=== PATIENT | female | born 1940 | race Caucasian/White ===

== ENCOUNTER → 2019-03-16 12:23 | Outpatient (CLI) | payer MEDICARE, SELFPAY ==
--- NOTE | ~2019-03-16 | XR_ITS ---
EXAMINATION: XR chest 2V DATE: 03/16/2019 12:37 INDICATION: Shortness of breath. TECHNIQUE: Frontal and lateral views of the chest were obtained on 3 radiographs. COMPARISON: None. FINDINGS: The chest demonstrates clear lungs without pneumonia, pleural effusion, or pneumothorax. Th e heart size is normal. IMPRESSION: 1. No acute cardiopulmonary disease. Reviewed, dictated and finalized at location A. NDER LOADER
== END ==
PROVIDERS: PCP Family Medicine; Visit Provider Family Medicine
DX: R06.02 Shortness of breath (principal)
CPT/HCPCS: 71046

== ENCOUNTER → 2019-03-28 12:58 | Outpatient (CLI) | payer MEDICARE, SELFPAY ==
--- NOTE | ~2019-03-28 | MM_ITS ---
EXAMINATION: MM screening [facility] BI w [place] HISTORY: Screening mammogram TECHNIQUE: Craniocaudal and mediolateral oblique 3-D tomosynthesis images were obtained and synthetic 2-D images were generated. CAD analysis was submitted and interpreted. COMPARISON: 11/16/2017, 10/25/2016, 11/13/2014 BREAST PARENCHYMAL COMPOSITION: There are scattered areas of fibroglandular density. FINDINGS: There is no evidence of suspicious mass, calcification, or architectural distortion to sugg est malignancy in either breast. There has been no suspicious interval change. IMPRESSION: 1. No mammographic evidence of malignancy. 2. Recommend routine screening mammography in one year. BI-RADS Category 1: Negative Reviewed, dictated and finalized at location A. RA ENGINEER
== END ==
PROVIDERS: PCP Family Medicine; Visit Provider Family Medicine
DX: Z12.31 Encounter for screening mammogram for malignant neoplasm of breast (principal)
CPT/HCPCS: 77063; 77067

== ENCOUNTER → 2019-09-20 09:50 | Outpatient (CLI) | payer MEDICARE, SELFPAY ==
--- NOTE | ~2019-09-20 | DEXA_ITS ---
Bone Density Report Name: Ana Kelly Age: 79 Sex: Female Ethnicity: White Date of : 1940 Indication: postmenopausal osteoporosis; monitoring treatment; height loss; Referring Provider: JULIO RICHARDSON Study: Bone densitometry was performed. Exam Date: September 20, 2019 Accession number: [id number] Bone Density: Region BMD T-score Z-score Classification AP Spine (L1-L4) 0.861 -1.7 1.0 Osteopenia Femoral Neck (Left) 0.469 -3.4 -1.1 Osteoporosis Total Hip (Left) 0.593 -2.9 -0.8 Osteoporosis Femoral Neck (Right) 0.452 -3.6 -1.3 Osteoporosis Total Hip (Right) 0.518 -3.5 -1.4 Osteoporosis Total Hip Mean 0.556 -3.2 -1.1 Osteoporosis World Health Organization criteria for BMD impression classify patients as: Normal (T-score at or above -1.0), Osteopenia (T-score between -1.0 and -2.5), or Osteoporosis (T-score at or below -2.5). 10-year Fracture Risk: FRAX not reported because: Some T-score for Spine Total or Hip Total or Femoral Neck at or below -2.5 Treated for osteoporosis Previous Exams: Region Exam Age BMD T-score BMD Change BMD Change Date g/cm2 vs Baseline vs Previous AP Spine(L1-L4) 09/20/2019 79 0.861 -1.7 0.069* 0.069* 10/18/2016 76 0.792 -2.3 Total Hip(Left) 09/20/2019 79 0.593 -2.9 -0.004 -0.004 10/18/2016 76 0.597 -2.8 Total Hip(Right) 09/20/2019 79 0.518 -3.5 0.038* 0.038* 10/18/2016 76 0.479 -3.8 *Denotes significance at 95% confidence level, LSC for AP Spine = 0.022 g/cm2, LSC for Total Hip = 0.027 g/cm2 Clinical Information Provided by Patient: Is being treated for osteoporosis Has used the following medications: Fosamax (i.e. alendronate), Vitamin D, Calcium Patient maximum height was 63 Menopause Age: 44 No regular weight bearing exercise Does not regularly consume dairy products Drinks caffeinated beverages Onset of menses at age 12 Number of children 2 Impression: The patient has osteoporosis, based on the Right Femoral Neck T-score. No significant bone loss was observed. Discussion: PATIENT UNDER TREATMENT WITH NO SIGNIFICANT BMD LOSS SINCE LAST EXAM. In an untreated patient, BMD typically declines with age. A lack of decline or gain is usually a sign that treatment is efficacious and fracture risk is reduced. It is important to ask patients whether they are taking their medications and to encourage continued and appropriate compliance with the
== END ==
PROVIDERS: PCP Family Medicine; Visit Provider Family Medicine
DX: M81.0 Age-related osteoporosis without current pathological fracture (principal); M85.88 Other specified disorders of bone density and structure, other site
CPT/HCPCS: 77080

== ENCOUNTER 2021-02-10 14:51 | Outpatient (CLI) | payer MEDICARE, SELFPAY ==
--- NOTE | ~2021-02-10 | MM_ITS ---
EXAMINATION: MM screening [facility] BI w [place] HISTORY: Screening mammogram TECHNIQUE: Craniocaudal and mediolateral oblique 3-D tomosynthesis images were obtained and synthetic 2-D images were generated. CAD analysis was submitted and interpreted. COMPARISON: 03/28/2019, 11/16/2017, 10/25/2016 BREAST PARENCHYMAL COMPOSITION: The breasts are almost entirely fatty. FINDINGS: There is no evidence of suspicious mass, calcification, or architectural distortion to sugg est malignancy in either breast. There has been no suspicious interval change. IMPRESSION: 1. No mammographic evidence of malignancy. 2. Recommend routine screening mammography while the patient remains in good health. BI-RADS Category 1: Negative Reviewed, dictated and finalized at location A. NCE INTERN IMPRESSION: 1. No mammographic evidence of malignancy. 2. Recommend routine screening mammography while the patient remains in good he alth. BI-RADS Category 1: Negative
== END 2021-02-10 14:52 | disposition home or self-care (01) ==
LOC: ANHIMG 14:54
PROVIDERS: PCP Family Medicine; Visit Provider Family Medicine
DX: Z12.31 Encounter for screening mammogram for malignant neoplasm of breast (principal)
CPT/HCPCS: 77063; 77067

== ENCOUNTER → 2022-05-03 08:35 | Outpatient (CLI) | payer MEDICARE, SELFPAY ==
--- NOTE | ~2022-05-03 | MM_ITS ---
EXAMINATION: MM screening [facility] BI w [place] HISTORY: Screening TECHNIQUE: Craniocaudal and mediolateral oblique 3-D tomosynthesis images were obtained and synthetic 2-D images were generated. CAD analysis was submitted and interpreted. COMPARISON: Comparison to multiple prior studies sequentially, with oldest reviewed study dated 08/2014. BREAST PARENCHYMAL COMPOSITION: There are scattered areas of fibroglandular density. FINDINGS: There is no evidence of suspicious mass, calcification, or architectural distortion to sugg est malignancy in either breast. There has been no suspicious interval change. IMPRESSION: 1. No mammographic evidence of malignancy. 2. Recommend routine screening mammography in one year. BI-RADS Category 1: Negative Reviewed, dictated and finalized at location A.
--- NOTE | ~2022-05-03 | DEXA_ITS ---
Bone Density Report Name: LORE GOMEZ Age: 82 Sex: Female Ethnicity: White Date of : 1940 Indication: postmenopausal osteoporosis; height loss; Referring Provider: JULIO RICHARDSON Study: Bone densitometry was performed. Exam Date: May 03, 2022 Accession number: [id number] Bone Density: Region BMD T-score Z-score Classification AP Spine (L1-L4) 0.870 -1.6 1.2 Osteopenia Femoral Neck (Left) 0.462 -3.5 -1.1 Osteoporosis Total Hip (Left) 0.596 -2.8 -0.6 Osteoporosis Femoral Neck (Right) 0.431 -3.8 -1.3 Osteoporosis Total Hip (Right) 0.516 -3.5 -1.3 Osteoporosis Total Hip Mean 0.556 -3.2 -1.0 Osteoporosis World Health Organization criteria for BMD impression classify patients as: Normal (T-score at or above -1.0), Osteopenia (T-score between -1.0 and -2.5), or Osteoporosis (T-score at or below -2.5). 10-year Fracture Risk: FRAX not reported because: Some T-score for Spine Total or Hip Total or Femoral Neck at or below -2.5 Previous Exams: Region Exam Age BMD T-score BMD Change BMD Change Date g/cm2 vs Baseline vs Previous AP Spine(L1-L4) 05/03/2022 82 0.870 -1.6 0.078* 0.009 09/20/2019 79 0.861 -1.7 0.069* 0.069* 10/18/2016 76 0.792 -2.3 Total Hip(Left) 05/03/2022 82 0.596 -2.8 -0.001 0.004 09/20/2019 79 0.593 -2.9 -0.004 -0.004 10/18/2016 76 0.597 -2.8 Total Hip(Right) 05/03/2022 82 0.516 -3.5 0.037* -0.001 09/20/2019 79 0.518 -3.5 0.038* 0.038* 10/18/2016 76 0.479 -3.8 *Denotes significance at 95% confidence level, LSC for AP Spine = 0.022 g/cm2, LSC for Total Hip = 0.027 g/cm2 Clinical Information Provided by Patient: Has used the following medications: Vitamin D, MTV Patient maximum height was 63 Menopause Age: 44 No regular weight bearing exercise Onset of menses at age 12 Number of children 2 Impression: The patient has osteoporosis, based on the Right Femoral Neck T-score. No significant bone loss was observed. Discussion: INCREASED RISK OF FRACTURE. BONE DENSITY IS UNDESIRABLY LOW AT ONE OR MORE SKELETAL SITES, CONSISTENT WITH POSTMENOPAUSAL OSTEOPOROSIS. This patient's lowest T-score meets the World Health Organization's (WHO) criteria for osteoporosis at one or more sites (T-score -2.5 or below). In untreated patients, the risk of osteoporotic fracture increases approximately tw
== END ==
PROVIDERS: PCP Family Medicine; Visit Provider Family Medicine
DX: Z12.31 Encounter for screening mammogram for malignant neoplasm of breast (principal); Z78.0 Asymptomatic menopausal state; M85.88 Other specified disorders of bone density and structure, other site; M81.0 Age-related osteoporosis without current pathological fracture
CPT/HCPCS: 77063; 77067; 77080

== ENCOUNTER 2022-07-01 08:34 | Day surgery (SDC) | payer MEDICARE, SELFPAY ==
[2022-06-15 14:13] VITALS: BMI 21.2
--- NOTE | 2022-06-30 15:23 | PM.HPGS ---
History of Present Illness History of Present Illness Consent: Risks, benefits, and alternatives have been discussed and questions answered. Patient agrees to proceed with procedure. Chief complaint: Anemia Narrative: Ana Kelly is a 82 year old female referred for investigation of anemia. Hemoglobin has been running between 10.8 and 11.1 For the past year or 2. A stool Hemoccult last year was negative. She denies using NSAIDs. She does have epigastric pain and usually is aware of it in the morning. Review of Systems Review of Systems: All systems reviewed & are unremarkable except as noted in HPI and below PMFSH Past Medical History Medical History Benign reactive hypertension Blurred vision Cervical spondylosis JEFFY (generalized anxiety disorder) Kyphoscoliosis Mixed hyperlipidemia Osteoporosis Stress at home Surgical History Surgical History H/O cervical spine surgery Hx of cataract surgery Family History Family History Father Family history of malignant neoplasm Other Family history of coronary artery disease Hypertension Social History Social History Social History: Smoking status: Never smoker Tobacco type: cigarettes Second hand tobacco smoke exposure: No Smoking end date: 02/07/89 Alcohol intake: never Substance use: never Substance use type: does not use Lack of Transportation: No Lack of Food: Never True Current Housing: I Have Housing Concerned About Future Housing: No Difficulty Paying Gas/Electric Bills: No Difficulty Paying for Meds: No Currently Unemployed: YES Education: Decline to Answer Difficulty w/ Childcare or Family Care: No Living arrangements: with family Additional living arrangements comments: pt son lives with her Occupation/Education: retired Gender identity (if verbalized by the patient): Female Sexual Orientation (if Verbalized by the Patient): Straight or Heterosexual Spiritual care concerns: No Meds Home Medications and Allergies Home Medications Medication Instructions Recorded Confirmed Type losartan 25 mg tablet 25 mg PO BID #180 tabs 10/29/21 07/01/22 Rx alendronate 70 mg tablet 70 mg PO WEEKLY #13 tabs 02/02/22 07/01/22 Rx cholecalciferol (vitamin D3) 1,250 1,250 mcg PO WEEKLY #14 caps 02/18/22 07/01/22 Rx mcg (50,000 unit) capsule rosuvastatin 5 mg tablet See Rx Instructions .Route 04/30/22 07/01/22 Rx .COMPLEX #90 tabs omeprazole 40 mg capsule,delayed 40 mg PO DAILY #30 caps 05/11/22 07/01/22 Rx release clorazepate dipotassium 7.5 mg 7.5 mg PO PRN PRN anxiety 06/15/22 06/15/22 History tablet Allergies Allergy/AdvReac Type Severity Reaction Status Date / Time escitalopram [From Lexapro] AdvReac Unknown nausea Verified 07/01/22 09:21 sertraline AdvReac Unknown nausea, Verified 07/01/22 09:21 vomiting Exam Const: General: alert Orientation/consciousness: patient oriented x3 Resp: Auscultation: clear to auscultation bilaterally Cardio: Rhythm: regular rhythm GI: GI Palp: Yes Soft to palpation and No Tenderness to palpation present (GI) Neuro: General: patient oriented x3 Assessment and Plan Assessment and plan (1) Anemia: Code(s): D64.9 - Anemia, unspecified Status: Acute Assessment and Plan: EGD with possible biopsy or dilatation or cautery.
[2022-07-01 09:26] VITALS: BP 146/83; PULSE 68; RESP 18; TEMP 36.6; O2SAT 100
[2022-07-01 09:31] VITALS: BMI 20.7
[2022-07-01] MEDS: LACTATED RINGERS 1,000 ML 150 ML IV CONT (09:59)
[2022-07-01 10:52] VITALS: BP 91/61; PULSE 68; RESP 14; O2SAT 98
[2022-07-01 11:03] VITALS: BP 101/55; PULSE 69; RESP 16; O2SAT 100
--- NOTE | 2022-07-01 11:08 | WPDANESPN ---
Anes - Prog Note Post-Op Date/Time: 07/01/22 11:08 Cardiovascular status: normal Respiratory status: normal Airway patency: baseline Mental status: baseline Post-Op hydration status: normal Vital Signs: Last Vital Signs Temp 36.6 C 07/01/22 09:26 Pulse 68 07/01/22 10:52 Resp 14 07/01/22 10:52 BP 91/61 L 07/01/22 10:52 Pulse Ox 98 07/01/22 10:52 O2 Del Method Room Air 07/01/22 10:52 Pain Score (VAS): 0/10 Patient Feedback: Patient satisfied with anesthetic care.
[2022-07-01 11:13] VITALS: BP 102/79; PULSE 71; RESP 18; O2SAT 99
== END 2022-07-01 12:08 | disposition home or self-care (01) ==
PROVIDERS: PCP Family Medicine; Visit Provider Internal Medicine Gastroenterology
PROC: 0DJ08ZZ Inspection of Upper Intestinal Tract, Via Natural or Artificial Opening Endoscopic (ICD-10-PCS; CPT 43235; principal; 2022-07-01 10:30)
DX: D64.9 Anemia, unspecified (principal)
CPT/HCPCS: 43239

== ENCOUNTER 2022-07-01 09:00 | Outpatient (NON) | payer MEDICARE, SELFPAY | END 2022-07-01 09:01 | disposition home or self-care (01) | LOC: ANHLAB 07-02 07:17 | PROVIDERS: PCP Family Medicine; Visit Provider Internal Medicine Gastroenterology | DX: D64.9 Anemia, unspecified (principal) | CPT/HCPCS: 88305 ==

== ENCOUNTER 2023-04-27 07:34 | Outpatient (CLI) | payer MEDICARE, SELFPAY ==
--- NOTE | ~2023-04-27 | XR_ITS ---
XR lumbar spine min 4V DATE: 04/27/2023 08:12 INDICATION: Back pain TECHNIQUE: AP, lateral, bilateral oblique views, coned lateral lumbosacral view COMPARISON: None FINDINGS: There is moderate rotatory levoscoliosis of the lumbar spine., Measuring 12 degrees from L2 to L5. There is prominent diffuse osteopenia. Moderately prominent compression fracture deformity of L3. Moderately severe degenerative disc disease at L2-3. Mild to moderate degenerative disease at L1-2, L 3-4, L4-5. No fracture or bone destruction, spondylolysis or spondylolisthesis is noted otherwise. The sacroiliac joints are intact. Prominent abdominal aortic calcification. IMPRESSION: Osteopenia Rotatory levoscoliosis L3 compression fracture deformity Multilevel degenerative disc disease, most prominent at L2-3 Reviewed, dictated and finalized at location B.
== END 2023-04-27 07:35 ==
LOC: MICIMG 07:35
PROVIDERS: PCP Family Medicine; Visit Provider Family Medicine
DX: R52 Pain, unspecified (principal); M85.88 Other specified disorders of bone density and structure, other site; M41.86 Other forms of scoliosis, lumbar region; M51.36 Other intervertebral disc degeneration, lumbar region
CPT/HCPCS: 72110

== ENCOUNTER 2023-06-02 09:01 | Outpatient (CLI) | payer MEDICARE, SELFPAY ==
--- NOTE | ~2023-06-02 | XR_ITS ---
Supine and upright views of the abdomen Clinical history: Anorexia Findings: Bowel gas pattern is nonspecific. No evidence for obstruction or free air. No abnormal mass lesion or calcification is seen. There is levoscoliosis of lumbar spine with probable severe william sharda fracture of L3.. Impression: Nonspecific bowel gas pattern. Severe compression fracture of L3 probably present. Reviewed, dictated and finalized at [facility]. Impression: Nonspecific bowel gas pattern. Severe compression fracture of L3 probably present.
== END 2023-06-02 09:02 ==
LOC: MICIMG 09:03
PROVIDERS: PCP Family Medicine; Visit Provider Family Medicine
DX: R63.0 Anorexia (principal); M48.56XA Collapsed vertebra, not elsewhere classified, lumbar region, initial encounter for fracture
CPT/HCPCS: 74018

== ENCOUNTER 2023-06-29 10:00 | Outpatient (RCR) | payer MEDICARE, SELFPAY ==
--- NOTE | 2023-05-12 10:56 | PTOPEVAL1 ---
Assessment and note entered by Robert Edwards Evaluation Information Assessment Status Evaluation Diagnosis dorsalgia, low back pain Onset 03/13/23 Subjective Information Pt. reports that her back pain began on the right side about 2 months ago. She recalls no specific incident, just woke with pain. She reports that over the 2 months pain has not worsened. Pt. reports that she has undergone x-ray. She states that pain does not disrupt her sleep, and states that pain is most notable with getting out of bed and getting up from a seated position. She reports she cannot stand for long duration and can only stand for about 15 minutes at most. She reports that she is still driving and still does some IADL's including grocery shopping. She denies any recent falls. She reports that her goal for therapy is to reduce her low back pain Reported Pain Level Pain Score 5: Self Report Assessment PT Clinical Summary Pt. is an 83 year old female who enters the clinic with dorsalgia due to degenrative changes in the spine. She presents with impaired gait, impaired postural awareness, impaired flexibility, weakness and pain on this date. Continued skilled PT is indicated in order to improve these areas to allow for improved comfort and efficiency with IADL performance. Plan of Care Interventions Electrical Stimulation,Gait Training,Hot Pack/Cold Pack,Manual Therapy,Neuro Re-education,Patient/ Caregiver Educati,Therapeutic Activities, Therapeutic Exercise PT Services Indicated Yes Treatment Frequency and 2x/week x 10 visits Duration These treatments will address the objective and functional deficits as defined above. The patient will be advanced safely and appropriately in order for the patient to progress towards his/her prior level of function. Additional exercises will be introduced and as well as a comprehensive home exercise program upon discharge, if needed, ?to ensure carryover of functional gains achieved in the clinic. This treatment plan has been reviewed and agreement upon by the patient.
--- NOTE | 2023-05-12 10:56 | OPREHPOC ---
Outpatient Therapy Plan of Care This is a Multidisciplinary Plan of Care that may contain components documented by all disciplines (PT, OT, and ST.) PT Problem 1 PT Problem #1 Knowledge Deficit PT Goal 1 Goal Independent with a HEP addressing strength and flexibility. Target Visit 2 PT Problem 2 PT Problem #2 Pain PT Goal 1 Goal Reduce pain reports to 2/10 at worst with prolonged standing activities. Target Visit 10 PT Problem 3 PT Problem #3 Impaired Strength PT Goal 1 Goal pt. will demonstrate improved symmetry in regards to muscle strength with manual mm. testing to provide improved stability with standing activities. Target Visit 10 PT Problem 4 PT Problem #4 Impaired Functional Mobil PT Goal 1 Goal Pt. will present with less than 5% limitation on the Modified Oswestry indicating overall improved function.
--- NOTE | 2023-06-02 12:49 | PCPTNOTE ---
Pt canceled due to illness.
--- NOTE | 2023-06-29 11:14 | PTOPDC ---
Assessment and note entered by Nitza Juarez, PT Discharge Information Assessment Status Discharge Diagnosis dorsalgia, low back pain Onset 03/13/23 Subjective Information pt. reports relief from pain, feeling no pain at all at this time. States cont. to feel some tightness to LEs but is very compliant with HEPs. states confident that she will be able to tolerate an upcoming travel to [place] due to not feeling any pain anymore. Reported Pain Level Pain Score 0: Self Report Assessment PT Clinical Summary Pt has met goals with no pain at this time, able to tolerate all supine, standing and seated exercises. 0% disability with Oswestry Disability Index. Educated on maintenance exercises she can do at home and when travelling to prevent pain flare-ups. Pt agreeable, skilled PT discontinued on this date. Plan of Care PT Services Indicated No
== END 2023-06-29 15:59 | disposition home or self-care (01) ==
LOC: ANHPT 10:00
PROVIDERS: PCP Family Medicine; Visit Provider Physician Assistant
DX: M51.36 Other intervertebral disc degeneration, lumbar region (principal); M54.9 Dorsalgia, unspecified
CPT/HCPCS: 97014; 97110; 97140; 97161; 97530; G0283

== ENCOUNTER 2023-07-11 13:32 | Outpatient (CLI) | payer MEDICARE, SELFPAY ==
--- NOTE | ~2023-07-11 | CT_ITS ---
Non-contrast CT scan of the Abdomen and Pelvis Clinical indication: Weight loss Technique: 2.5 mm axial scans were obtained through the abdomen and pelvis without intravenous or or al contrast. Dose reduction technique was used on this scan by utilizing automated exposure control a nd iterative reconstruction technique. The dose-length product (DLP) was 178.68 mGy-cm. Findings: Images through the lung bases reveal calcified granulomas. There is no evidence of renal or ureteral calculi. The kidneys and the ureters are nondilated. The liver, spleen, pancreas, gallbladder, and adrenals appear normal. There are atherosclerotic calci fications of the aorta. There is no evidence of bowel obstruction. Images through the pelvis were performed. There is no evidence of ascites or lymphadenopathy. Urinary bladder unremarkable. No adnexal mass seen. No ascites. Compression fracture of L3 present, moderate in severity. Impression: Moderate L3 compression fracture. No other significant findings. Reviewed, dictated and finalized at [facility]. Impression: Moderate L3 compression fracture. No other significant findings.
== END 2023-07-11 13:33 | disposition home or self-care (01) ==
PROVIDERS: PCP Family Medicine; Visit Provider Family Medicine
DX: M48.56XA Collapsed vertebra, not elsewhere classified, lumbar region, initial encounter for fracture (principal)
CPT/HCPCS: 74176

== ENCOUNTER 2023-08-29 10:08 | Emergency (ER) | payer MEDICARE, SELFPAY ==
[2023-08-29] VITALS (8 sets, daily range): BP systolic 107–145; BP diastolic 61–97; PULSE 76–91; RESP 16–29; TEMP 36.4; O2SAT 62–100
--- NOTE | ~2023-08-29 | CT_ITS ---
CT brain wo con Ordering provider: Jerson Pulliam MD History: 83 years Female with . head injury, LLE weakness . Comparison: None. Technique: CT of the head without contrast. Radiation reduction technique utilized. The dose-length p roduct was 605.33 mGy-cm. FINDINGS: BRAIN PARENCHYMA AND CSF SPACES: Hemorrhagic changes are seen in the right parietal area with brain c ontusion measuring 1.3 cm. Highly suggestive cardiomegaly radiology, and DrSheldon Cunningham in the major radiology and left frontal area with subarachnoid hemorrhage.. Minimal fluid colle ction seen in the area of the body of the corpus callosum measuring 1 x 1.5 cm.. Partial empty sella turcica. Mild leukoaraiosis and diffuse cortical atrophy. Mild atheromatous disease. No midline shift , mass effect or hemorrhage. The brain parenchyma and CSF spaces are otherwise normal. VISUALIZED PARANASAL SINUSES: Well aerated. MASTOIDS: Well aerated. BONES: The bones appear intact. SOFT TISSUES: Visualized nasopharynx is normal. Superficial soft tissues are normal. IMPRESSION: Hemorrhagic changes in the right parietal and left frontal areas. Brain atrophy with deep white matter ischemic changes. Physician: Jerson Pulliam MD Was notified with the result of the patient at 12:00 PM on August 29, 2023. Reviewed, dictated and finalized at location A.
--- NOTE | ~2023-08-29 | XR_ITS ---
XR chest 2V Ordering provider: Jerson Pulliam MD History: 83 years Female with . weakness, LEFT SIDE LEG WEAKNESS X1 MONTH . Comparison: March 16, 2019 FINDINGS: MEDIASTINUM: The cardiac silhouette is not enlarged. LUNGS: No infiltrates, effusions or pneumothorax. Underlying emphysematous changes. Vague opacity in the retrosternal area unchanged. OTHER: No free air under the diaphragm. S-shaped scoliosis. Degenerative changes of the spine. IMPRESSION: No acute cardiopulmonary pathology. Reviewed, dictated and finalized at location A.
--- NOTE | 2023-08-29 11:24 | ECG_ITS ---
Test Date: 2023-08-29 11:58:00 Measurements Intervals [place] Rate: 75 P: 95 AR: 256 QRS: 39 QRSD: 86 T: 54 QT: 363 QTc: 407 Interpretive Statements SINUS RHYTHM WITH FIRST DEGREE AV BLOCK LEFT VENTRICULAR HYPERTROPHY AND ST-T CHANGE BORDERLINE ST-T WAVE ABNORMALITY- INF/LAT LEADS BASELINE ARTIFACT- I, II, III, AVL, AVF, V2 BORDERLINE ECG No previous ECG available for comparison Electronically Signed On 08-29-2023 13:06:06 CDT by Rafat Fishman D.O.
--- NOTE | 2023-08-29 12:01 | ED.GENADULT ---
HPI - General Adult General Chief complaint: Fall Stated complaint: difficulty walking Time Seen by Provider: 08/29/23 11:07 History of Present Illness HPI narrative: Patient is an 83-year-old female who presents ER with complaints of left foot weakness. Reports she has been having trouble walking over last month in her leg/foot just give out on her. Has caused her to fall. She is unsure when her last follow-up was. She has for ability to communicate about how to describe her weakness. She also does not know what month it is. She reports she lives at home with her son. She is not on blood thinning medications. No history of CVA. Related Data Allergies Allergy/AdvReac Type Severity Reaction Status Date / Time escitalopram [From Lexapro] AdvReac Unknown nausea Verified 08/29/23 10:39 sertraline AdvReac Unknown nausea, Verified 08/29/23 10:39 vomiting Review of Systems Review of Systems: All systems reviewed & are unremarkable except as noted in HPI and below Constitutional: Constitutional: Reports no additional constitutional complaints ENT: Reports system reviewed and no additional complaints, except as documented Cardiovascular: Cardiovascular: Reports no additional cardiovascular complaints Respiratory: Respiratory: Reports no additional respiratory complaints Musculoskeletal: Musculoskeletal: Denies back pain, Denies arthralgias and Denies joint swelling Neurologic: Denies syncope, Denies headache(s) and Reports focal weakness PMFSH Past Medical History Medical History Benign reactive hypertension Blurred vision Cervical spondylosis JEFFY (generalized anxiety disorder) Kyphoscoliosis Mixed hyperlipidemia Osteoporosis Stress at home Surgical History Surgical History H/O cervical spine surgery Hx of cataract surgery Family History Family History Father Family history of malignant neoplasm Other Family history of coronary artery disease Hypertension Social History Social History Social History: Smoking status: Never smoker Tobacco type: cigarettes Second hand tobacco smoke exposure: No Smoking end date: 02/07/89 Alcohol intake: never Substance use: never Substance use type: does not use Do You Feel Safe in your Home?: Yes Lack of Transportation: No Lack of Food: Never True Current Housing: I Have Housing Concerned About Future Housing: No Difficulty Paying Gas/Electric Bills: No Difficulty Paying for Meds: No Currently Unemployed: YES Education: Decline to Answer Difficulty w/ Childcare or Family Care: No Living arrangements: with family Additional living arrangements comments: pt son lives with her Occupation/Education: retired Gender identity (if verbalized by the patient): Female Sexual Orientation (if Verbalized by the Patient): Straight or Heterosexual Spiritual care concerns: No Exam Narrative: GENERAL: Well-appearing, well-nourished, and in no acute distress. HEAD: Normocephalic, bruising lateral to left eyebrow. EYES: PERRL and EOMI. ENT: Mucous membranes moist. CHEST: Clear to auscultation. No respiratory distress. HEART: Regular rate and rhythm. Normal peripheral pulses. ABDOMEN: Soft, nontender, nondistended. EXTREMITIES: 3/5 strength in the ankle of the left foot, 4/5 strength at the knee, 5/5 at the hip left side. Normal strength on the right lower extremity. No upper extremity drift. SKIN: Warm, dry, no rash. Bruising of different ages of the lower extremity on left side. NEURO: No facial droop, walks with guarded gait, left ankle weakness. Alert and oriented x2. PSYCH: Normal mood and affect. Course Course Emergency Course: Accepted by Dr. Hayward at [facility]. Transfer by [facility] ambulance. Creatinine elevated to 1.6 from baseline of 1.0 in 2021. Vi
[2023-08-29 12:20] LABS: Basophils Absolute Auto 0.1 K/mm3 (0.0-0.1); Basophils Percent Auto 0.8 % (0.2-1.2); Eosinophils Absolute Auto 0.3 K/mm3 (0-0.3); Eosinophils Percent Auto 3.4 % (0-4.4); Hematocrit 29.9 % (37.0-47.0); Hemoglobin 9.6 g/dL (12.0-15.0); Immature Granulocyte Absolute 0.11 K/mm3 (0.00-0.031); Immature Granulocyte Percent A 1.2 % (0-0.5); Lymphocytes Percent Auto 28.5 % (18.3-44.2); Mean Corpuscular HGB Conc 32.1 g/dl (32-36); Mean Corpuscular Hemoglobin 31.8 pg (26-34); Mean Platelet Volume 8.7 fl (7.4-10.4); Monocytes Absolute Auto 0.6 K/mm3 (0.1-0.6); Monocytes Percent Auto 6.4 % (2.6-8.5); Neutrophils Absolute Auto 5.6 K/mm3 (1.3-6.7); Neutrophils Percent Auto 59.7 % (45.5-73.1); Platelet Count Result 408 k/mm3 (150-375); Red Blood Count 3.02 M/mm3 (4.2-5.4); Red Cell Distribution Width 13.6 % (11.5-14.5); White Blood Count 9.5 K/mm3 (4.5-10.0)
[2023-08-29 12:30] LABS: Alanine Aminotransferase 20 U/L (6-35); Albumin Level 4.8 g/dL (3.5-5.1); Alkaline Phosphatase 90 U/L (38-126); Anion Gap 13 mmol/L (4-12); Aspartate Amino Transferase 29 U/L (14-36); Bilirubin,Total 0.6 mg/dL (0.2-1.3); Blood Urea Nitrogen 41 mg/dL (7-17); Calcium 9.9 mg/dL (8.4-10.2); Carbon Dioxide 20 mmol/L (22-30); Chloride 104 mmol/L (98-107); Estimated CRCL calculation 17 ml/min; Estimated Glomerular Filt Rate 31; Glucose 97 mg/dL (65-110); Potassium 4.6 mmol/L (3.4-5.0); Sodium 137 mmol/L (137-145)
[2023-08-29 12:31] LABS: INR 1.1; Prothrombin Time 14.3 Seconds (11.1-14.7)
[2023-08-29 12:32] LABS: Partial Thromboplastin Time 26.1 Seconds (22.3-36.8)
[2023-08-29] MEDS: SODIUM CHLORIDE 0.9% IV 1,000 ML 999 ML IV CONT (12:41)
== END 2023-08-29 14:39 | disposition short-term general hospital (02) ==
PROVIDERS: Emergency Provider Emergency Medicine; PCP Family Medicine
DX: S06.6XAA Traumatic subarachnoid hemorrhage with loss of consciousness status unknown, initial encounter (principal); S06.31AA Contusion and laceration of right cerebrum with loss of consciousness status unknown, initial encounter; R53.1 Weakness; I10 Essential (primary) hypertension; E78.2 Mixed hyperlipidemia; M81.0 Age-related osteoporosis without current pathological fracture; Z98.49 Cataract extraction status, unspecified eye; Z87.891 Personal history of nicotine dependence; I44.0 Atrioventricular block, first degree; I51.7 Cardiomegaly; R94.31 Abnormal electrocardiogram [ECG] [EKG]; W19.XXXA Unspecified fall, initial encounter
CPT/HCPCS: 36415; 70450; 71046; 80053; 85025; 85610; 85730; 93005; 96360; 96361; 99291; J7030

== ENCOUNTER 2023-09-26 10:07 | Outpatient (CLI) | payer MEDICARE, SELFPAY ==
--- NOTE | ~2023-09-26 | US_ITS ---
EXAMINATION: US renal BI DATE: 09/26/2023 10:33 INDICATION: Hypertension and stage IIIB chronic kidney disease TECHNIQUE: Multiple ultrasound grayscale images of the kidneys were obtained. COMPARISON: None. FINDINGS: The right kidney measures 9.1 x 3.3 x 3.8 cm. The left kidney measures 8.4 x 4.5 x 4.6 cm. Mildly inc reased renal cortical echogenicity relative to the medullary pyramids which can be seen with medical renal disease. There is no hydronephrosis in either kidney. No stones identified. The bladder is pa rtially decompressed which limits evaluation. IMPRESSION: 1. Bilateral mild diffuse increased renal cortical echogenicity consistent with medical renal diseas e. No hydronephrosis. Reviewed, dictated and finalized at location A. IMPRESSION: 1. Bilateral mild diffuse increased renal cortical echogenicity consistent wit h medical renal disease. No hydronephrosis.
== END 2023-09-26 10:08 ==
LOC: MICIMG 10:08
PROVIDERS: PCP Family Medicine; Visit Provider Internal Medicine Nephrology
DX: I12.9 Hypertensive chronic kidney disease with stage 1 through stage 4 chronic kidney disease, or unspecified chronic kidney disease (principal); N18.32 Chronic kidney disease, stage 3b
CPT/HCPCS: 76775

== ENCOUNTER 2023-11-05 19:34 | Emergency (ER) | payer MEDICARE, SELFPAY ==
[2023-11-05] VITALS (16 sets, daily range): BP systolic 144–185; BP diastolic 78–159; PULSE 63–105; RESP 17–24; TEMP 36.6; O2SAT 95–100
--- NOTE | ~2023-11-05 | XR_ITS ---
XR chest port-a-cath/central Ordering provider: Wayne Álvarez MD History: 82 years Female with . central line placed. . Comparison: November 05, 2023 FINDINGS: MEDIASTINUM: The cardiac silhouette is not enlarged. Endotracheal tube above the jesi by about 6 cm . Left central line with the tip overlying the superior vena cava. LUNGS: No infiltrates, effusions or pneumothorax. OTHER: No free air under the diaphragm. Degenerative changes of the spine. IMPRESSION: No acute cardiopulmonary pathology. Reviewed, dictated and finalized at location A.
--- NOTE | ~2023-11-05 | XR_ITS ---
XR chest ET placement Ordering provider: Wayne Álvarez MD History: 82 years Female with . ett placed . Comparison: November 05, 2023 FINDINGS: MEDIASTINUM: The cardiac silhouette is not enlarged. Endotracheal tube with the tip about 6 cm above the jesi. LUNGS: No infiltrates, effusions or pneumothorax. OTHER: No free air under the diaphragm. Degenerative changes of the spine. IMPRESSION: No acute cardiopulmonary pathology. Reviewed, dictated and finalized at location A.
--- NOTE | ~2023-11-05 | CT_ITS ---
CTA brain carotid Ordering provider: Wayne Álvarez MD History: . stroke symptoms . Comparison: None. Technique: CT angiogram head and neck was performed following timed intravenous injection of contrast . Thin slice axial images and reformatted coronal images were obtained. Three dimensional reformatted images of the brain were also obtained using a [employer] workstation. Radiation reduction technique ut ilized. The dose-length product was 33.49 mGy-cm. FINDINGS: HEAD: --ANTERIOR AND MIDDLE CEREBRAL ARTERIES AND BRANCHES: Normal caliber and contour. --INTERNAL CAROTID ARTERIES: Mild atheromatous disease but no significant stenosis. No occlusion. --BASILAR ARTERY AND BRANCHES: Normal caliber and contour. No atheromatous disease. --POSTERIOR CEREBRAL ARTERIES: Normal caliber and contour --POSTERIOR COMMUNICATING ARTERIES: The left continues as the posterior cerebral artery. 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 --ANEURYSM: None visualized. --BRAIN: Please refer to report of CT head performed the same day. small focus of increased density is seen in the lateral aspect of the inferior hematoma which may rep resent a an active bleeding --BONES AND SUPERFICIAL SOFT TISSUES: Please refer to report of CT head performed the same day. --PARANASAL SINUSES AND MASTOIDS: Please refer to report of CT head done the same day. NECK: --RIGHT CERVICAL CAROTID SYSTEM: Mild atheromatous disease of the carotid bulb and proximal internal carotid artery without significant stenosis. Percent stenosis per NASCET criteria is 0%. No carotid dissection. Otherwise, no significant atheromatous disease or stenosis of the cervical carotid system . --LEFT CERVICAL CAROTID SYSTEM: Mild atheromatous disease of the carotid bulb and proximal internal c arotid artery without significant stenosis. Percent stenosis per NASCET criteria is 0% No carotid di ssection. Otherwise, no significant atheromatous disease or stenosis of the cervical carotid system. --VERTEBRAL ARTERIES: Normal caliber and contour. --VISUALIZED AORTIC ARCH AND BRANCHING VESSELS: Mild atheromatous disease but no significant stenosis . --SOFT TISSUES: Normal. --CERVICAL SPINE: Age appropriate degenerative changes. IMPRESSION: Possible active bleeding spot in the inferior aspect of the left frontal hematoma. Otherwise, normal CTA head and neck. Percent stenosis per NASCET criteria is 0%. Reviewed, dictated and finalized at location A. IMPRESSION: Possible active bleeding spot in the inferior aspect of the left frontal hemato ma. Otherwise, normal CTA head and neck. Percent stenosis per NASCET criteria i s 0%.
--- NOTE | ~2023-11-05 | XR_ITS ---
XR chest 1V portable Ordering provider: Wayne Álvarez MD History: 82 years Female with . cva . Comparison: August 29, 2023 FINDINGS: MEDIASTINUM: The cardiac silhouette is not enlarged. LUNGS: No infiltrates, effusions or pneumothorax. OTHER: No free air under the diaphragm. Degenerative spine. IMPRESSION: No acute cardiopulmonary pathology. Reviewed, dictated and finalized at location A.
--- NOTE | ~2023-11-05 | CT_ITS ---
CT brain wo con Ordering provider: Wayne Álvarez MD History: 82 years Female with . cva . Comparison: August 28 Technique: CT of the head without contrast. Radiation reduction technique utilized. The dose-length product was 681 mGy-cm. FINDINGS: BRAIN PARENCHYMA AND CSF SPACES: Intracerebral hematoma is seen in the left frontoparietal area which measures 6.3 x 3.5x 6.5 cm. Surr ounding edema is seen. Right frontal, left frontal and biparietal subarachnoid hemorrhage is seen. Le ft-to-right midline shift is seen measuring 4 mm. Effacement of the sulci is seen in the left frontal parietal area. VISUALIZED PARANASAL SINUSES: Well aerated. MASTOIDS: Well aerated. BONES: The bones appear intact. SOFT TISSUES: Visualized nasopharynx is normal. Superficial soft tissues are normal. IMPRESSION: Intracranial hemorrhage in the left frontal parietal area with [id number] midline shift of 4 mm. Bifrontal and biparietal subarticular edema is also noted. Physician: Wayne Álvarez MD Was notified with the result of the patient at 8:03 PM on November 05, 2023. Reviewed, dictated and finalized at location A. IMPRESSION: Intracranial hemorrhage in the left frontal parietal area with [id number] mi dline shift of 4 mm. Bifrontal and biparietal subarticular edema is also noted. Physician: Wayne Álvarze MD Was notified with the result of the patient at 8:03 PM on November 05, 2023.
--- NOTE | 2023-11-05 19:35 | ECG_ITS ---
Test Date: 2023-11-05 20:15:27 Measurements Intervals [place] Rate: 110 P: 170 LA: 206 QRS: 5 QRSD: 86 T: -15 QT: 353 QTc: 479 Interpretive Statements ECTOPIC ATRIAL TACHYCARDIA LEFT VENTRICULAR HYPERTROPHY WITH ST-T CHANGE CONSIDER INFERIOR INFARCT, AGE INDETERMINATE ST-T WAVE ABNORMALITY IN ANTEROLATERAL LEADS- CONSIDER ISCHEMIA BASELINE ARTIFACT- I, II, III, AVR, AVL, AVF, V1-V6 ABNORMAL ECG Compared to ECG 08/29/2023 11:58:00 ECTOPIC ATRIAL TACHYCARDIA NOW PRESENT ST-T WAVE ABNORMALITY, CONSIDER ISCHEMIA NOW PRESENT Electronically Signed On 11-06-2023 09:06:24 CDT by Rafat Fishman D.O.
[2023-11-05 19:52] LABS: Basophils Absolute Auto 0.1 K/mm3 (0.0-0.1); Basophils Percent Auto 0.4 % (0.2-1.2); Eosinophils Absolute Auto 0.2 K/mm3 (0-0.3); Eosinophils Percent Auto 1.3 % (0-4.4); Hematocrit 34.1 % (37.0-47.0); Hemoglobin 11.2 g/dL (12.0-15.0); Immature Granulocyte Absolute 0.11 K/mm3 (0.00-0.031); Immature Granulocyte Percent A 0.9 % (0-0.5); Lymphocytes Absolute Auto 4.12 K/mm3 (0.9-3.2); Lymphocytes Percent Auto 34.8 % (18.3-44.2); Mean Corpuscular HGB Conc 32.8 g/dl (32-36); Mean Corpuscular Hemoglobin 32.6 pg (26-34); Mean Corpuscular Volume 99.1 fl (80-100); Mean Platelet Volume 8.5 fl (7.4-10.4); Monocytes Absolute Auto 0.9 K/mm3 (0.1-0.6); Monocytes Percent Auto 7.8 % (2.6-8.5); Neutrophils Absolute Auto 6.5 K/mm3 (1.3-6.7); Neutrophils Percent Auto 54.8 % (45.5-73.1); Platelet Count Result 349 k/mm3 (150-375); Red Blood Count 3.44 M/mm3 (4.2-5.4); Red Cell Distribution Width 12.4 % (11.5-14.5); White Blood Count 11.9 K/mm3 (4.5-10.0)
[2023-11-05 20:03] LABS: Alanine Aminotransferase 17 U/L (6-35); Albumin Level 4.6 g/dL (3.5-5.1); Alkaline Phosphatase 49 U/L (38-126); Anion Gap 11 mmol/L (4-12); Aspartate Amino Transferase 33 U/L (14-36); Bilirubin,Total 0.5 mg/dL (0.2-1.3); Blood Urea Nitrogen 50 mg/dL (7-17); Calcium 9.3 mg/dL (8.4-10.2); Carbon Dioxide 20 mmol/L (22-30); Chloride 103 mmol/L (98-107); Estimated Glomerular Filt Rate 27; Glucose 93 mg/dL (65-110); Potassium 4.6 mmol/L (3.4-5.0); Prothrombin Time 13.8 Seconds (11.1-14.7); Sodium 134 mmol/L (137-145)
[2023-11-05 20:04] LABS: Partial Thromboplastin Time 23.2 Seconds (22.3-36.8)
[2023-11-05] MEDS: levETIRAcetam 1500MG/NACL100ML 1,500 MG/100 ML BAG 400 MG IVPB (20:11)
[2023-11-05 20:18] LABS: Troponin I 0.076 ng/mL (0.000-0.034)
[2023-11-05] MEDS: fentaNYL CITRATE INJ (*CRX) 100 MCG/2 ML VIAL IV PUSH (20:20)
[2023-11-05] MEDS: ETOMIDATE 20 MG/10 ML AMPUL 15 MG IV PUSH (20:21)
[2023-11-05] MEDS: RAPID SEQUENCE INTUBATION KIT 1 EACH (20:21)
[2023-11-05] MEDS: SODIUM CHLORIDE IV PUSH (20:24)
[2023-11-05] MEDS: FENTANYL 2,500MCG/NS250ML(*CRX 2,500 MCG/250 ML BAG IV CONT (20:31)
--- NOTE | 2023-11-05 20:56 | PC.NURSE ---
Patient intubated with 7.5 ET tube, secured at 21 at the lip. Patient received 15mg etomidate, 50mg precious and 100mcg of fent for sedation. Tube verified by xray, color change, bilateral breath sounds, and visible chest rise and fall.
--- NOTE | 2023-11-05 21:10 | PC.NURSE ---
ERP in room and gives VORB to flight team, to start nicardipine drip en route. Flight team starting drip.
[2023-11-05] MEDS: niCARdipine 20 MG/200 ML 20 MG/200 ML BAG 50 MG IV CONT (21:12)
--- NOTE | 2023-11-05 21:13 | PC.NURSE ---
2034 ERP placed central line in left subclavian, verified by xray.
[2023-11-05 23:40] LABS: Estimated Glomerular Filt Rate 21
--- NOTE | 2023-11-06 07:54 | ED.AMS ---
HPI - Altered Mental Status General Chief Complaint: Altered Mental Status Stated Complaint: code stroke Time Seen by Provider: 11/05/23 19:37 History of Present Illness HPI narrative: 82-year-old female presenting as a code stroke via EMS. Last known well 6:30 p.m. as seen by her son who lives with her. Patient has a history of intracranial process including subarachnoid hematoma and hemorrhage most recently 1 month prior. She was previously transferred to [facility] and discharged to rehabilitation at [place]. Patient presents with posturing, left-sided gaze preference, nonverbal, uncooperative with stroke assessment. Blood glucose EN route was 114. Activated is a stroke protocol at this time with concerns for intracranial bleeding versus intracranial ischemic event. Collateral information provided by EMR and EMS report. Family is not present for additional information. Last known well 6:30 p.m. Related Data Home Medications Medication Instructions Recorded Confirmed acetaminophen 500 mg capsule 1,000 mg PO Q6H 09/01/23 09/27/23 Allergies Allergy/AdvReac Type Severity Reaction Status Date / Time No Known Allergies Allergy Verified 09/27/23 10:11 Review of Systems Review of Systems: ROS unobtainable: Yes unobtainable due to medical condition PMFSH Past Medical History Medical History Benign reactive hypertension Blurred vision Cervical spondylosis JEFFY (generalized anxiety disorder) Kyphoscoliosis Mixed hyperlipidemia Osteoporosis Stress at home Surgical History Surgical History H/O cervical spine surgery Hx of cataract surgery Family History Family History Father Family history of malignant neoplasm Cancer Mother Cancer Other Family history of coronary artery disease Hypertension Social History Social History Social History: Smoking packs per day: 2 Smoking cigarettes per day: 40.0 Years smoked: 10 Smoking pack-years: 20.00 Smoking status: Former smoker Tobacco type: cigarettes Second hand tobacco smoke exposure: No Smoking end date: 02/07/89 Alcohol intake: never Substance use: never Substance use type: does not use Do You Feel Safe in your Home?: Yes Lack of Transportation: No Lack of Food: Never True Current Housing: I Have Housing Concerned About Future Housing: No Difficulty Paying Gas/Electric Bills: No Difficulty Paying for Meds: No Currently Unemployed: No Education: Associate Degree Difficulty w/ Childcare or Family Care: No Living arrangements: with family Additional living arrangements comments: pt son lives with her Occupation/Education: retired Gender identity (if verbalized by the patient): Female Sexual Orientation (if Verbalized by the Patient): Straight or Heterosexual Spiritual care concerns: No Agree to blood products: Yes Exam Narrative: GENERAL: Unwell appearing, posturing, left-sided gaze preference, seemingly moving her left extremities not her right extremities. HEAD: [Normocephalic, atraumatic.] EYES: Left-sided gaze preference, pupils are 4 mm reactive bilaterally ENT: Nares clear, no rhinorrhea or epistaxis. Mucous membranes moist. NECK: Supple. CHEST: [Clear to auscultation. No respiratory distress.] HEART: [Regular rate and rhythm]. No murmur heard. [Normal peripheral pulses.] ABDOMEN: [Soft, nondistended], [nontender], [No rigidity or guarding] EXTREMITIES: Normal range of motion. [No edema.] SKIN: Warm, dry, no rash. NEURO: Decorticate posturing of the left side, left-sided gaze preference, unable to fully do stroke assessment given level of mental status which is presently alert oriented times 0. GCS 6 for posturing and opening eyes to pain Course Vital S
[2023-11-14 12:42] LABS: Glucose Point of Care 102 mg/dl (65-105)
== END 2023-11-05 21:14 | disposition short-term general hospital (02) ==
PROVIDERS: Emergency Provider Student in an Organized Health Care Education/Training Program; PCP Family Medicine
DX: I62.9 Nontraumatic intracranial hemorrhage, unspecified (principal); I10 Essential (primary) hypertension; E78.2 Mixed hyperlipidemia; M81.0 Age-related osteoporosis without current pathological fracture; Z98.49 Cataract extraction status, unspecified eye; Z87.891 Personal history of nicotine dependence; I47.19 Other supraventricular tachycardia; I51.7 Cardiomegaly; R94.31 Abnormal electrocardiogram [ECG] [EKG]
CPT/HCPCS: 31500; 36415; 36556; 70450; 70496; 70498; 71045; 80053; 82948; 84484; 85025; 85610; 85730; 93005; 96365; 96375; 99291; C1751; J1953; J2404; J3010; Q9967